=== PATIENT | female | born 1950 | race Caucasian/White ===

== ENCOUNTER 2023-04-12 09:24 | Inpatient (IN) | payer MEDICARE, OTHER ==
[~2023-04-12] VITALS: Ht 162.6 cm; Wt 70.3 kg
[2023-04-12] VITALS (10 sets, daily range): BP systolic 104–135; BP diastolic 50–77; TEMP 98.8–98.9; O2SAT 93–98
[2023-04-12 09:54] LABS: BASOPHILS % (AUTO) 0.5 % (0.0-2.0); EOSINOPHILS # (AUTO) 0.1 K/uL (0.0-0.7); EOSINOPHILS % (AUTO) 0.8 % (0.0-6.0); HEMATOCRIT 37 % (33-45); HEMOGLOBIN 12.3 g/dL (11.5-14.8); LYMPHOCYTES # (AUTO) 2.4 K/uL (0.8-4.8); LYMPHOCYTES % (AUTO) 33.7 % (20.0-44.0); MEAN CORPUSCULAR HEMOGLOBIN 28 PG (26.0-33.0); MEAN CORPUSCULAR HGB CONC 33 g/dl (31.0-36.0); MEAN CORPUSCULAR VOLUME 85 fL (82-100); MONOCYTES # (AUTO) 0.5 K/uL (0.1-1.30); MONOCYTES % (AUTO) 6.9 % (2.0-12.0); NEUTROPHILS # (AUTO) 4.2 K/uL (1.8-8.9); NEUTROPHILS % (AUTO) 58.1 % (43.0-81.0); PLATELET COUNT (AUTO) 292 K/uL (150-450); RED BLOOD CELL COUNT(AUTO) 4.36 MIL/uL (4.0-5.2); WHITE BLOOD COUNT (AUTO) 7.3 K/uL (4.3-11.0)
[2023-04-12 10:03] LABS: CALCIUM, SERUM 9.7 mg/dL (8.5-10.1); CARBON DIOXIDE 25 mmol/L (21-32); CHLORIDE 97 mmol/L (98-107); CREATININE 0.7 mg/dL (0.6-1.3); GLUCOSE 115 mg/dL (74-106); POTASSIUM 3.9 mmol/L (3.5-5.1); SODIUM SERUM 132 mmol/L (136-145); UREA NITROGEN, BLOOD 16 mg/dL (7-18)
[2023-04-12 10:16] LABS: NT-PRO BNP 62 pg/mL (0-125)
[2023-04-12] MEDS ORDERED: FAMOTIDINE/PF INJ 20 MG/2 ML VIAL IV ONE ×2 (10:30→10:50)
[2023-04-12] MEDS ORDERED: NITROGLYCERIN 0.4 MG/TAB BOTTLE SL ONE (10:30)
[2023-04-12] MEDS ORDERED: MAG HYDROX/AL HYDROX/SIMETH 30 ML UDC PO ONE (10:30)
[2023-04-12] MEDS ORDERED: LIDOCAINE VISCOUS 2% UD 15 ML UDC MM ONE (10:30)
[2023-04-12] MEDS ORDERED: ASPIRIN 81 MG TAB.CHEW PO ONE (10:30)
[2023-04-12] MEDS ORDERED: NITROGLYCERIN PACKET 1 GM PACKET TOP ONE (10:30)
[2023-04-12] MEDS ORDERED: MAG HYDROX/AL HYDROX/SIMETH 30 ML UDC ONE (10:49)
[2023-04-12] MEDS ORDERED: LIDOCAINE VISCOUS 2% UD 15 ML UDC ONE (10:49)
[2023-04-12] MEDS ORDERED: NITROGLYCERIN 0.4 MG/TAB BOTTLE ONE (10:49)
[2023-04-12] MEDS ORDERED: NITROGLYCERIN PACKET 1 GM PACKET ONE ×2 (10:50→11:02)
[2023-04-12] MEDS ORDERED: ASPIRIN 81 MG TAB.CHEW ONE (10:50)
[2023-04-12] MEDS ORDERED: ZINC50TA69 PO (12:35)
[2023-04-12] MEDS ORDERED: [UNRECOGNIZED DRUG - REMARK] PO (12:35)
[2023-04-12] MEDS ORDERED: ASCO-352 PO (12:35)
[2023-04-12] MEDS ORDERED: CYAN-51 PO (12:35)
[2023-04-12] MEDS ORDERED: ENOXAPARIN SODIUM 60 MG/0.6 ML DISP.SYRIN SQ ONE (13:00)
[2023-04-12] MEDS ORDERED: ENOXAPARIN SODIUM 80 MG/0.8 ML DISP.SYRIN SQ ONE (13:03)
[2023-04-12] MEDS ORDERED: Z GUARD REMEDY 4 OZ OINT TP PRN (15:00)
[2023-04-12] MEDS ORDERED: ACETAMINOPHEN 325 MG TABLET PO PRN (15:00)
[2023-04-12] MEDS ORDERED: MORPHINE SULFATE INJ 2 MG/ML DISP.SYRIN IV PRN (15:00)
[2023-04-12] MEDS ORDERED: MAGNESIUM HYDROXIDE 30 ML UDC PO PRN (15:00)
[2023-04-12] MEDS: IV NS 0.9% 1,000 ML IV PRN (16:51)
[2023-04-12] MEDS: NITROGLYCERIN PACKET 1 GM PACKET TOP SCH ×2 (18:06→23:03)
[2023-04-12] MEDS ORDERED: NTG 50 MG/D5W250 ML BOTTL 250 ML IV PRN (19:00)
[2023-04-12] MEDS: ONDANSETRON HCL/PF 4 MG/2 ML VIAL IVP PRN (21:39)
[2023-04-12] MEDS: METOPROLOL TARTRATE 25 MG TABLET PO SCH ×2 (23:00→23:31)
[2023-04-12] MEDS: ATORVASTATIN 40 MG TABLET PO SCH ×2 (23:00→23:30)
[2023-04-12] MEDS: MORPHINE SULFATE INJ 2 MG/ML DISP.SYRIN IV PRN (23:04)
[2023-04-13] VITALS (39 sets, daily range): BP systolic 88–131; BP diastolic 43–88; TEMP 97.7–98.3; O2SAT 95–100
[2023-04-13] MEDS: ENOXAPARIN SODIUM 80 MG/0.8 ML DISP.SYRIN SQ SCH ×2 (01:09→12:05)
[2023-04-13 04:57] LABS: BASOPHILS % (AUTO) 0.4 % (0.0-2.0); EOSINOPHILS % (AUTO) 0.6 % (0.0-6.0); HEMATOCRIT 33 % (33-45); HEMOGLOBIN 11.1 g/dL (11.5-14.8); LYMPHOCYTES # (AUTO) 1.8 K/uL (0.8-4.8); LYMPHOCYTES % (AUTO) 24.9 % (20.0-44.0); MEAN CORPUSCULAR HEMOGLOBIN 29 PG (26.0-33.0); MEAN CORPUSCULAR HGB CONC 33 g/dl (31.0-36.0); MEAN CORPUSCULAR VOLUME 86 fL (82-100); MONOCYTES # (AUTO) 0.7 K/uL (0.1-1.30); NEUTROPHILS # (AUTO) 4.8 K/uL (1.8-8.9); NEUTROPHILS % (AUTO) 65.1 % (43.0-81.0); PLATELET COUNT (AUTO) 248 K/uL (150-450); RED BLOOD CELL COUNT(AUTO) 3.89 MIL/uL (4.0-5.2); RED CELL DISTRIBUTION WIDTH 13.7 % (11.5-15.0); WHITE BLOOD COUNT (AUTO) 7.4 K/uL (4.3-11.0)
[2023-04-13] MEDS: NITROGLYCERIN PACKET 1 GM PACKET TOP SCH ×4 (05:08→18:04)
[2023-04-13] MEDS: IV NS 0.9% 1,000 ML IV PRN ×2 (05:08→18:04)
[2023-04-13 05:24] LABS: CALCIUM, SERUM 9.1 mg/dL (8.5-10.1); CREATININE 0.6 mg/dL (0.6-1.3); MAGNESIUM 2.3 mg/dL (1.8-2.4); PHOSPHORUS 4.3 mg/dL (2.5-4.9)
[2023-04-13 05:30] LABS: ALBUMIN 3.2 g/dL (3.4-5.0); BILIRUBIN,DIRECT 0.1 mg/dL (0.0-0.2); BILIRUBIN,TOTAL 0.6 mg/dL (0.2-1.0); TOTAL PROTEIN, SERUM 6.8 g/dL (6.4-8.2)
[2023-04-13 05:38] LABS: THYROID STIMULATING HORMONE 3.732 uIU/mL (0.358-3.74)
[2023-04-13] MEDS: ONDANSETRON HCL/PF 4 MG/2 ML VIAL IVP PRN (06:34)
[2023-04-13] MEDS: ZINC SULFATE 220 MG CAPSULE PO SCH (08:26)
[2023-04-13] MEDS: ASPIRIN 81 MG TAB.CHEW PO SCH (08:26)
[2023-04-13] MEDS: CYANOCOBALAMIN 500 MCG TABLET PO SCH (08:26)
[2023-04-13] MEDS: ASCORBIC ACID 500 MG TABLET PO SCH (08:26)
[2023-04-13] MEDS: METOPROLOL TARTRATE 25 MG TABLET PO SCH ×2 (08:28→20:49)
[2023-04-13] MEDS ORDERED: ASPIRIN 81 MG TAB.CHEW PO SCH (09:00)
[2023-04-13] MEDS ORDERED: METOCLOPRAMIDE HCL 10 MG/2 ML VIAL IV PRN (10:30)
[2023-04-13] MEDS ORDERED: CLOPIDOGREL BISULFATE 300 MG TABLET PO ONE (15:30)
[2023-04-13] MEDS: PANTOPRAZOLE 40 MG TABLET.DR PO SCH (16:26)
[2023-04-13] MEDS ORDERED: PANTOPRAZOLE 40 MG VIAL IV SCH (20:00)
[2023-04-13] MEDS: MAG HYDROX/AL HYDROX/SIMETH 30 ML UDC PO PRN (20:48)
[2023-04-13] MEDS: ATORVASTATIN 40 MG TABLET PO SCH ×2 (21:48→21:55)
[2023-04-13] MEDS: MORPHINE SULFATE INJ 2 MG/ML DISP.SYRIN IV PRN (23:43)
[2023-04-14] VITALS (23 sets, daily range): BP systolic 86–131; BP diastolic 51–88; TEMP 97.2–98.5; O2SAT 93–100
[2023-04-14] MEDS: NITROGLYCERIN PACKET 1 GM PACKET TOP SCH ×4 (00:03→17:27)
[2023-04-14] MEDS: ENOXAPARIN SODIUM 80 MG/0.8 ML DISP.SYRIN SQ SCH ×2 (00:27→12:03)
[2023-04-14 05:01] LABS: BASOPHILS % (AUTO) 0.3 % (0.0-2.0); EOSINOPHILS # (AUTO) 0.1 K/uL (0.0-0.7); EOSINOPHILS % (AUTO) 1.3 % (0.0-6.0); HEMATOCRIT 32 % (33-45); HEMOGLOBIN 10.8 g/dL (11.5-14.8); LYMPHOCYTES # (AUTO) 1.3 K/uL (0.8-4.8); LYMPHOCYTES % (AUTO) 23.7 % (20.0-44.0); MEAN CORPUSCULAR HEMOGLOBIN 29 PG (26.0-33.0); MEAN CORPUSCULAR HGB CONC 33 g/dl (31.0-36.0); MEAN CORPUSCULAR VOLUME 86 fL (82-100); MONOCYTES # (AUTO) 0.5 K/uL (0.1-1.30); MONOCYTES % (AUTO) 9.3 % (2.0-12.0); NEUTROPHILS # (AUTO) 3.6 K/uL (1.8-8.9); NEUTROPHILS % (AUTO) 65.4 % (43.0-81.0); PLATELET COUNT (AUTO) 237 K/uL (150-450); RED BLOOD CELL COUNT(AUTO) 3.77 MIL/uL (4.0-5.2); WHITE BLOOD COUNT (AUTO) 5.5 K/uL (4.3-11.0)
[2023-04-14 05:14] LABS: CREATININE 0.7 mg/dL (0.6-1.3); MAGNESIUM 2.2 mg/dL (1.8-2.4); PHOSPHORUS 3.5 mg/dL (2.5-4.9); POTASSIUM 3.6 mmol/L (3.5-5.1)
[2023-04-14] MEDS: IV NS 0.9% 1,000 ML IV PRN (06:39)
[2023-04-14] MEDS: METOPROLOL TARTRATE 25 MG TABLET PO SCH ×2 (08:11→21:00)
[2023-04-14] MEDS: CYANOCOBALAMIN 500 MCG TABLET PO SCH (08:11)
[2023-04-14] MEDS: ZINC SULFATE 220 MG CAPSULE PO SCH (08:11)
[2023-04-14] MEDS: PANTOPRAZOLE 40 MG TABLET.DR PO SCH (08:11)
[2023-04-14] MEDS: ASCORBIC ACID 500 MG TABLET PO SCH (08:11)
[2023-04-14] MEDS: ASPIRIN 81 MG TAB.CHEW PO SCH (08:12)
[2023-04-14] MEDS ORDERED: ASPIRIN 325 MG TABLET PO SCH (09:00)
[2023-04-14] MEDS ORDERED: CLOPIDOGREL BISULFATE 75 MG TABLET PO SCH (09:00)
[2023-04-14] MEDS: MAG HYDROX/AL HYDROX/SIMETH 30 ML UDC PO PRN (18:56)
[2023-04-14] MEDS: ATORVASTATIN 40 MG TABLET PO SCH (22:00)
== END 2023-04-14 22:55 | disposition short-term general hospital (02) | DRG 281 ==
LOC: ER 09:43 → TELE 14:17 → ICU 19:20
PROVIDERS: ADMIT Nurse Practitioner Family; ATTEND Nurse Practitioner Family
DX: I21.4 Non-ST elevation (NSTEMI) myocardial infarction (principal); E87.1 Hypo-osmolality and hyponatremia; Z20.822 Contact with and (suspected) exposure to COVID-19; E78.5 Hyperlipidemia, unspecified; R73.03 Prediabetes; K21.9 Gastro-esophageal reflux disease without esophagitis; K44.9 Diaphragmatic hernia without obstruction or gangrene; Z86.19 Personal history of other infectious and parasitic diseases; Z88.2 Allergy status to sulfonamides; Z88.1 Allergy status to other antibiotic agents; Z88.8 Allergy status to other drugs, medicaments and biological substances; K57.90 Diverticulosis of intestine, part unspecified, without perforation or abscess without bleeding; Z82.49 Family history of ischemic heart disease and other diseases of the circulatory system; Z80.9 Family history of malignant neoplasm, unspecified
CPT/HCPCS: 36415; 71045-TC; 80048-TC; 80061-TC; 80076-TC; 83735-TC; 83880; 84100-TC; 84443-TC; 84484-TC; 85025-TC; 93307-TC; A4223; C9113; G0378; J1650; J2270; J2405; J2765; J3490; J7030